=== PATIENT | male | born 1985 | race Two or more races ===

== ENCOUNTER 2017-03-12 07:15 | Emergency (ER) | payer MEDICAID ==
[~2017-03-12] VITALS: Ht 182.9 cm; Wt 88.5 kg
[~2017-03-12 07:15] MED LIST: BENTYL10 MG ORAL; KEFLEX500 MG ORAL; NKM; NORCO 5-325 TA1 EACH ORAL; OMEPRAZOLE40 M1 ORAL; PROTONIX40 M2 GT; RANITIDINE HCL150 MG ORAL; TYLENOL WITH C1 EACH ORAL; VICODIN 5-5001 EACH ORAL; ZANTAC150 MG ORAL; ZOFRAN ODT4 MG ORAL; ZOFRAN4 MG ORAL
[2017-03-12 07:27] VITALS: BP 149/92
[2017-03-12] MEDS ORDERED: Dicyclomine HCl 10mg/5ml oral soln ORAL ONE (07:45)
[2017-03-12] MEDS ORDERED: Mylanta II UD 30ml ORAL ONE (07:45)
[2017-03-12] MEDS ORDERED: Ketorolac 30mg Inj IV ONE (07:45)
[2017-03-12] MEDS ORDERED: Lidocaine 2% Visc 15ml soln ORAL ONE (07:45)
[2017-03-12] MEDS ORDERED: Morphine Sulfate 4mg/ml Inj IVP ONE (07:45)
[2017-03-12 07:55] LABS: BASOPHILS % (AUTO) 0.3 % (0.0-2.0); EOSINOPHILS % (AUTO) 0.2 % (0.0-3.0); LYMPHOCYTES % (AUTO) 11.1 % (20.0-45.0); MEAN CORPUSCULAR HEMOGLOBIN 27.4 PG (27.0-31.0); MEAN CORPUSCULAR HGB CONC 31.7 G/DL (32.0-36.0); MEAN CORPUSCULAR VOLUME 86 FL (80-99); NEUTROPHILS % (AUTO) 84.5 % (45.0-75.0); PLATELET COUNT 343 K/UL (150-450); RED BLOOD COUNT 5.24 M/UL (4.70-6.10); RED CELL DISTRIBUTION WIDTH 12.4 % (11.6-14.8); WHITE BLOOD COUNT 15.3 K/UL (4.8-10.8)
[2017-03-12 07:56] LABS: ANION GAP 13 mmol/L (5-15); CALCIUM 8.7 MG/DL (8.5-10.1); CARBON DIOXIDE 25 MMOL/L (21-32); CHLORIDE 102 MMOL/L (98-107); CREATININE 1.1 MG/DL (0.55-1.30); GLOMERULAR FILTRATION RATE > 60 mL/min (>60); POTASSIUM 3.3 MMOL/L (3.5-5.1); SODIUM 140 MMOL/L (136-145)
[2017-03-12 08:00] LABS: ALANINE AMINOTRANSFERASE 28 U/L (12-78); ASPARTATE AMINO TRANSFERASE 20 U/L (15-37); LIPASE 88 U/L (73-393); TOTAL PROTEIN 8.6 G/DL (6.4-8.2)
[2017-03-12] MEDS ORDERED: Hydromorphone 0.5mg/0.5ml inj ONE (08:12)
[2017-03-12] MEDS ORDERED: HYDROmorphone 1mg/ml Carpuject IVP ONE (08:15)
[2017-03-12 09:00] VITALS: BP 132/75
[2017-03-12] MEDS ORDERED: ZOFRAN ODT4 MG ORAL (09:00)
[2017-03-12] MEDS ORDERED: NORCO 5-325 TA1 EACH ORAL (09:00)
[2017-03-12] MEDS ORDERED: RANITIDINE HCL150 MG ORAL (09:00)
[2017-03-12 09:32] VITALS: BP 132/75
--- NOTE | 2017-03-12 10:11 | Emergency Room Report ---
History of Present Illness General Chief Complaint: Abdominal Pain Source: Patient Present Illness HPI 31-year-old male presents ED complaining of abdominal pain with nausea and vomiting. Started this morning. Pain is epigastric, 10 out of 10, throbbing, nonradiating. Denies chest pain shortness of breath. Notes nausea and vomiting. Denies fevers or chills. Notes history of gastritis. States he is not had a problem in some time now. Denies alcohol or drug use. No other aggravating relieving factors. Denies any other associated symptoms Allergies: Coded Allergies: No Known Allergies (Unverified , 10/01/12) Patient History Past Medical History: GERD Past Surgical History: none Pertinent Family History: none Social History: Denies: smoking, alcohol use, drug use Immunizations: UTD Reviewed Nursing Documentation: PMH: Agreed, PSxH: Agreed Nursing Documentation-PMH Past Medical History: No Stated History Hx Gastrointestinal Problems: Yes Review of Systems All Other Systems: negative except mentioned in HPI Physical Exam Vital Signs Date Time Temp Pulse Resp B/P (MAP) Pulse Ox O2 Delivery O2 Flow Rate FiO2 03/12/17 07:27 97.5 69 21 149/92 100 Room Air Sp02 EP Interpretation: reviewed, normal General Appearance: alert, GCS 15, non-toxic, moderate distress Head: normocephalic, atraumatic Eyes: bilateral eye normal inspection, bilateral eye PERRL ENT: hearing grossly normal, normal pharynx, no angioedema, normal voice Neck: full range of motion, supple/symm/no masses Respiratory: chest non-tender, lungs clear, normal breath sounds, speaking full sentences Cardiovascular #1: regular rate, rhythm, no edema Cardiovascular #2: 2+ carotid (R), 2+ carotid (L), 2+ radial (R), 2+ radial (L) , 2+ dorsalis pedis (R), 2+ dorsalis pedis (L) Gastrointestinal: normal bowel sounds, soft, non-distended, no guarding, no rebound, tenderness Rectal: deferred Genitourinary: normal inspection, no CVA tenderness Musculoskeletal: back normal, gait/station normal, normal range of motion, non- tender Neurologic: alert, oriented x3, responsive, motor strength/tone normal, sensory intact, speech normal Psychiatric: judgement/insight normal, memory normal, mood/affect normal, no suicidal/homicidal ideation Reflexes: 3+ bicep (R), 3+ bicep (L), 3+ tricep (R), 3+ tricep (L), 3+ knee (R) , 3+ knee (L) Skin: normal color, no rash, warm/dry, well hydrated Lymphatic: no adenopathy Medical Decision Making Diagnostic Impression: Primary Impression: Gastritis Qualified Codes: K29.00 - Acute gastritis without bleeding Additional Impression: Chronic pain Qualified Codes: G89.29 - Other chronic pain ER Course Hospital Course 31-year-old M presents to ED with epigastric pain with N/V. differential diagnosis: gastritis, SBO, cholecystits Clinical course Patient placed on stretcher. On pvc monitor. After initial history and physical I ordered labs, IV fluids, zofran, gi cocktail, pepcid and pain meds Labs - noted leukocytosis, no electrolyte abnormalities, LFTs normal On reassessment patient continues to have pain. Reviewed EMR and patient has been here in the past for similar presentation. Patient continued to require high doses of pain medication Agreed to provide him with 1 mg of Dilaudid Upon reassessment, patient states pain has improved. Tolerating by mouth intake I feel this is a highly complex case requiring extensive working including EKG/ Rhythm strip, Xray/CT/US, Blood/urine lab work, repeat exams while in ED, and administration of strong opiates/narcotics for pain control, admission to hospital or close patient follow up. Diagnosis - gastritis, chronic pain Stable and discharged to home with prescriptions for Zantac, zofran, norco. Followup with PMD. Return to ED if symptoms recur or worsen Labs Test 03/12/17 07:30 White Blood Count 15.3 K/UL (4.8-10.8) Red Blood Count 5.24 M/UL (4.70-6.10) Hemoglobin 14.3 G/DL (14.2-18.0) Hematocrit 45.2 % (42.0-52.0) Mean Corpuscular Volume 86 FL (80-99) Mean Corpuscular Hemoglobin 27.4 PG (27.0-31.0) Mean Corpuscular Hemoglobin Concent 31.7 G/DL (32.0-36.0) Red Cell Distribution Width 12.4 % (11.6-14.8) Platelet Count 343 K/UL (150-450) Mean Platelet Volume 6.0 FL (6.5-10.1) Neutrophils (%) (Auto) 84.5 % (45.0-75.0) Lymphocytes (%) (Auto) 11.1 % (20.0-45.0) Monocytes (%) (Auto) 4.0 % (1.0-10.0) Eosinophils (%) (Auto) 0.2 % (0.0-3.0) Basophils (%) (Auto) 0.3 % (0.0-2.0) Sodium Level 140 MMOL/L (136-145) Potassium Level 3.3 MMOL/L (3.5-5.1) Chloride Level 102 MMOL/L (98-107) Carbon Dioxide Level 25 MMOL/L (21-32) Anion Gap 13 mmol/L (5-15) Blood Urea Nitrogen 14 mg/dL (7-18) Creatinine 1.1 MG/DL (0.55-1.30) Estimat Glomerular Filtration Rate > 60 mL/min (>60) Glucose Level 134 MG/DL (74-106) Calcium Level 8.7 MG/DL (8.5-10.1) Total Bilirubin 0.8 MG/DL (0.2-1.0) Aspartate Amino Transf (AST/SGOT) 20 U/L (15-37) Alanine Aminotransferase (ALT/SGPT) 28 U/L (12-78) Alkaline Phosphatase 144 U/L (46-116) Total Protein 8.6 G/DL (6.4-8.2) Albumin 4.4 G/DL (3.4-5.0) Globulin 4.2 g/dL Albumin/Globulin Ratio 1.0 (1.0-2.7) Lipase 88 U/L (73-393) Last Vital Signs Date Time Temp Pulse Resp B/P (MAP) Pulse Ox O2 Delivery O2 Flow Rate FiO2 03/12/17 09:32 97.5 67 17 132/75 100 Room Air Status: improved Disposition: HOME, SELF-CARE Condition: Stable Scripts Ranitidine Hcl* (ZANTAC*) 150 Mg Tablet 150 MG ORAL TWICE A DAY, #30 TAB Prov: EDWINA CAMPUZANO M.D. 03/12/17 Ondansetron Odt* (ZOFRAN ODT*) 4 Mg Tab.rapdis 4 MG ORAL Q6H Y for Nausea & Vomiting, #30 TAB 0 Refills Prov: EDWINA CAMPUZANO M.D. 03/12/17 Hydrocodone Bit/Acetaminophen 5-325* (NORCO 5-325*) 1 Each Tablet 1 TAB ORAL Q6H Y for For Pain, #10 TAB 0 Refills Prov: EDWINA CAMPUZANO M.D. 03/12/17 Referrals: [facility]ERR[facility] (PCP) Patient Instructions: Gastritis, Adult EDWINA CAMPUZANO M.D. Mar 12, 2017 10:11
== END 2017-03-12 09:32 | disposition home or self-care (01) ==
LOC: EMR 08:15
DX: K29.70 Gastritis, unspecified, without bleeding (principal); G89.29 Other chronic pain; K21.9 Gastro-esophageal reflux disease without esophagitis
CPT/HCPCS: 36415; 80053; 83690; 85025; 96361; 96374; 96375; 99284; J1170; J1885; J2270; J2405; S0028

== ENCOUNTER 2017-06-29 12:47 | Inpatient (IN) | payer MEDICAID ==
[~2017-06-29] VITALS: Ht 185.4 cm; Wt 77.6 kg
--- NOTE | 2017-06-29 12:55 | Emergency Room Report ---
History of Present Illness General Source: Patient, Significant Other Present Illness HPI The patient was discharged from [facility] this morning. He was seen for epigastric pain. He has a history of having gastritis and ulcers. He had endoscopy done 1 year ago at [facility]. [place] treated him with omeprazole and discharged him. The pain is 10/10 any Lisa vomiting at this time. He denies vomiting coffee grounds or having melena. He states his stools have been dark brown. There's been no blood. He denies any fevers, productive cough. He does not believe he had a biopsy done at [place]. He states he was never treated with antibiotics. He denies alcohol, smoking, NSAIDs. No chest pain, cough, sore throat, headache, rashes. Anxious with pain out of control. Had been seen in past for same problem here. Last was February 2017. Prior to that 2015. In past, dx here of gastritis. Also felt to have drug seeking behavior. Allergies: Coded Allergies: No Known Allergies (Unverified , 10/01/12) Patient History Past Medical History: see triage record Social History: Reports: drug use - THC; Denies: smoking, alcohol use Social History Narrative with significant other Reviewed Nursing Documentation: PMH: Agreed; PSxH: Agreed Nursing Documentation-PMH Hx Gastrointestinal Problems: Yes Review of Systems All Other Systems: negative except mentioned in HPI Physical Exam Vital Signs Date Time Temp Pulse Resp B/P (MAP) Pulse Ox O2 Delivery O2 Flow Rate FiO2 06/29/17 12:48 98.1 63 17 165/91 100 Room Air 98.1 Sp02 EP Interpretation: reviewed, normal General Appearance: GCS 15, non-toxic, severe distress, other - diaphoretic Head: normocephalic Eyes: bilateral eye normal inspection, bilateral eye PERRL ENT: moist mucus membranes Neck: supple Respiratory: lungs clear, normal breath sounds Cardiovascular #1: regular rate, rhythm Cardiovascular #2: 2+ radial (R) Gastrointestinal: no mass, non-distended, no rebound, guarding, tenderness, decreased bowel sounds, scaphoid Genitourinary: no CVA tenderness Musculoskeletal: back normal, gait/station normal, normal range of motion Neurologic: alert, oriented x3, grossly normal Psychiatric: anxious - and in pain Skin: normal inspection, warm/dry Medical Decision Making Diagnostic Impression: Primary Impression: Acute abdominal pain Additional Impression: Gastritis Qualified Codes: K29.00 - Acute gastritis without bleeding ER Course The patient presents with severe epigastric pain. He has a history of gastritis and ulcer. We need to be concerned about this and the possibility of pancreatitis. Also his heart needs to be checked out. The patient will be evaluated with EKG and labs. He'll be treated with IV hydration, Protonix, Reglan, Benadryl and Dilaudid. Labs with normal WBC, CMP (slight elevation glucose), normal lipase. Xrays unremarkable. Patient pain is returning. Dilaudid repeated. No more vomiting but still with gagging. Patient needs hospitalization for pain control and consideration for repeat endoscopy. Admit med Dr. Castle. Laboratory Tests Test 06/29/17 12:50 06/29/17 14:00 White Blood Count 9.8 K/UL (4.8-10.8) Red Blood Count 5.39 M/UL (4.70-6.10) Hemoglobin 15.7 G/DL (14.2-18.0) Hematocrit 45.6 % (42.0-52.0) Mean Corpuscular Volume 85 FL (80-99) Mean Corpuscular Hemoglobin 29.2 PG (27.0-31.0) Mean Corpuscular Hemoglobin Concent 34.5 G/DL (32.0-36.0) Red Cell Distribution Width 11.4 % (11.6-14.8) L Platelet Count 243 K/UL (150-450) Mean Platelet Volume 7.0 FL (6.5-10.1) Neutrophils (%) (Auto) 80.7 % (45.0-75.0) H Lymphocytes (%) (Auto) 13.5 % (20.0-45.0) L Monocytes (%) (Auto) 5.2 % (1.0-10.0) Eosinophils (%) (Auto) 0.2 % (0.0-3.0) Basophils (%) (Auto) 0.4 % (0.0-2.0) Prothrombin Time 10.7 SEC (9.30-11.50) Prothrombin Time INR 1.0 (0.9-1.1) PTT 26 SEC (23-33) Sodium Level 142 MMOL/L (136-145) Potassium Level 3.2 MMOL/L (3.5-5.1) L Chloride Level 101 MMOL/L (98-107) Carbon Dioxide Level 26 MMOL/L (21-32) Anion Gap 15 mmol/L (5-15) Blood Urea Nitrogen 18 mg/dL (7-18) Creatinine 0.9 MG/DL (0.55-1.30) Estimate Glomerular Filtration Rate > 60 mL/min (>60) Glucose Level 132 MG/DL (74-106) H Calcium Level 9.9 MG/DL (8.5-10.1) Total Bilirubin 1.4 MG/DL (0.2-1.0) H Direct Bilirubin 0.3 MG/DL (0.0-0.3) Aspartate Amino Transferase (AST) 19 U/L (15-37) Alanine Aminotransferase (ALT) 31 U/L (12-78) Alkaline Phosphatase 120 U/L (46-116) H Total Creatine Kinase 88 U/L (26-308) Troponin I 0.000 ng/mL (0.000-0.056) Total Protein 8.3 G/DL (6.4-8.2) H Albumin 4.7 G/DL (3.4-5.0) Globulin 3.6 g/dL Albumin/Globulin Ratio 1.3 (1.0-2.7) Lipase 97 U/L (73-393) Serum Alcohol < 3 mg/dL Urine Color Pale yellow Urine Appearance Clear Urine pH 8 (4.5-8.0) Urine Specific [place] 1.015 (1.005-1.035) Urine Protein Negative (NEGATIVE) Urine Glucose (UA) Negative (NEGATIVE) Urine Ketones 4+ (NEGATIVE) H Urine Occult Blood 1+ (NEGATIVE) H Urine Nitrite Negative (NEGATIVE) Urine Bilirubin Negative (NEGATIVE) Urine Urobilinogen Normal MG/DL (0.0-1.0) Urine Leukocyte Esterase Negative (NEGATIVE) Urine RBC 2-4 /HPF (0 - 0) H Urine WBC 0-2 /HPF (0 - 0) Urine Squamous Epithelial Cells Occasional /LPF Urine Bacteria Occasional /HPF (NONE) Urine Opiates Screen Negative (NEGATIVE) Urine Barbiturates Screen Negative (NEGATIVE) Phencyclidine (PCP) Screen Negative (NEGATIVE) Urine Amphetamines Screen Negative (NEGATIVE) Urine Benzodiazepines Screen Negative (NEGATIVE) Urine Cocaine Screen Negative (NEGATIVE) Urine Marijuana (THC) Screen Positive (NEGATIVE) H EKG Diagnostic Results Rate: normal Rhythm: NSR ST Segments: no acute changes Rhythm Strip Diag. Results Rhythm: NSR, no PVC's, no ectopy Chest X-Ray Diagnostic Results Chest X-Ray Diagnostic Results : Chest X-Ray Ordered: Yes # of Views/Limited/Complete: 1 View Indication: Other EP Interpretation: Yes Interpretation: no consolidation, no effusion, no pneumothorax, no acute cardiopulmonary disease Impression: No acute disease Electronically Signed by: Electronically signed by Oumar Dickson MD Other X-Ray Diagnostic Results Other X-Ray Diagnostic Results : # of Views/Limited Vs Complete: 2 View Indication: Pain EP Interpretation: Yes Interpretation: nonspecific bowel gas, no sbo, other - No masses Impression: Other Electronically Signed by: Electronically signed by Oumar Dickson MD Last Vital Signs Date Time Temp Pulse Resp B/P (MAP) Pulse Ox O2 Delivery O2 Flow Rate FiO2 06/29/17 20:00 99.4 73 19 153/89 100 Room Air 99.4 Status: improved Disposition: ADMITTED INPATIENT Condition: Serious Oumar Dickson M.D. Jun 29, 2017 12:55
[2017-06-29 12:57] VITALS: BP 146/81
[2017-06-29] MEDS ORDERED: Metoclopramide 10mg/2ml Inj IVP ONE (13:00)
[2017-06-29] MEDS ORDERED: Pantoprazole Inj IV ONE (13:00)
[2017-06-29] MEDS ORDERED: HYDROmorphone 1mg/ml Carpuject IVP ONE ×2 (13:00→15:00)
[2017-06-29] MEDS ORDERED: DiphenhydrAMINE 50mg/ml Inj IVP ONE (13:00)
[2017-06-29 13:39] LABS: ANION GAP 15 mmol/L (5-15); BLOOD UREA NITROGEN 18 mg/dL (7-18); CALCIUM 9.9 MG/DL (8.5-10.1); CARBON DIOXIDE 26 MMOL/L (21-32); CHLORIDE 101 MMOL/L (98-107); CREATININE 0.9 MG/DL (0.55-1.30); POTASSIUM 3.2 MMOL/L (3.5-5.1); SODIUM 142 MMOL/L (136-145)
[2017-06-29 13:49] LABS: ALANINE AMINOTRANSFERASE 31 U/L (12-78); ALBUMIN 4.7 G/DL (3.4-5.0); ALBUMIN/GLOBULIN RATIO 1.3 (1.0-2.7); ALKALINE PHOSPHATASE 120 U/L (46-116); ASPARTATE AMINO TRANSFERASE 19 U/L (15-37); BILIRUBIN,TOTAL 1.4 MG/DL (0.2-1.0); CREATINE KINASE 88 U/L (26-308)
[2017-06-29 13:51] LABS: BASOPHILS % (AUTO) 0.4 % (0.0-2.0); EOSINOPHILS % (AUTO) 0.2 % (0.0-3.0); HEMATOCRIT 45.6 % (42.0-52.0); HEMOGLOBIN 15.7 G/DL (14.2-18.0); LYMPHOCYTES % (AUTO) 13.5 % (20.0-45.0); MEAN CORPUSCULAR VOLUME 85 FL (80-99); MONOCYTES % (AUTO) 5.2 % (1.0-10.0); NEUTROPHILS % (AUTO) 80.7 % (45.0-75.0); PLATELET COUNT 243 K/UL (150-450); RED BLOOD COUNT 5.39 M/UL (4.70-6.10); RED CELL DISTRIBUTION WIDTH 11.4 % (11.6-14.8); WHITE BLOOD COUNT 9.8 K/UL (4.8-10.8)
[2017-06-29 13:52] LABS: BILIRUBIN,DIRECT 0.3 MG/DL (0.0-0.3)
[2017-06-29 14:16] LABS: APPEARANCE,URINE CLEAR; BILIRUBIN, URINE NEGATIVE (NEGATIVE); COLOR,URINE PALE YELLOW; GLUCOSE, URINE (UA) NEGATIVE (NEGATIVE); KETONES,URINE 4+ (NEGATIVE); LEUKOCYTE ESTERASE ,URINE NEGATIVE (NEGATIVE); NITRITE,URINE NEGATIVE (NEGATIVE); PH,URINE 8 (4.5-8.0); PROTEIN,URINE NEGATIVE (NEGATIVE); UROBILINOGEN,URINE NORMAL MG/DL (0.0-1.0)
[2017-06-29] MEDS ORDERED: PANTOPRAZOLE SO40 MG ORAL (14:19)
[2017-06-29 14:33] VITALS: BP 146/92
[2017-06-29] MEDS ORDERED: Mylanta II UD 30ml ORAL ONE (15:15)
[2017-06-29] MEDS ORDERED: Lidocaine 2% Visc 15ml soln ORAL ONE (15:15)
[2017-06-29] MEDS ORDERED: LORazepam Inj 2mg/ml 1ml IV PRN (15:45)
[2017-06-29] MEDS ORDERED: Miralax 17gm pkt ORAL PRN (15:45)
[2017-06-29] MEDS ORDERED: Mylanta II UD 30ml ORAL PRN (15:45)
[2017-06-29] MEDS ORDERED: Metoclopramide 10mg/2ml Inj IVP PRN (15:45)
[2017-06-29] MEDS ORDERED: Nitroglycerin Subl 0.4mg tab SL PRN (16:00)
[2017-06-29 16:21] VITALS: BP 106/67
[2017-06-29] MEDS: D5 1/2NS 1,000 ML IV SCH (17:50)
[2017-06-29] MEDS: Morphine Sulfate 4mg/ml Inj IVP PRN (19:49)
[2017-06-29 20:00] VITALS: BP 153/89
[2017-06-29] MEDS: Heparin 5000 units/ml inj SUBQ SCH (21:25)
[2017-06-30] VITALS: BP 121/66
[2017-06-30 04:00] VITALS: BP 112/74
[2017-06-30] MEDS: D5 1/2NS 1,000 ML IV SCH (05:13)
[2017-06-30 06:35] LABS: BASOPHILS % (AUTO) 0.5 % (0.0-2.0); EOSINOPHILS % (AUTO) 1.3 % (0.0-3.0); HEMATOCRIT 39.4 % (42.0-52.0); HEMOGLOBIN 13.8 G/DL (14.2-18.0); MEAN CORPUSCULAR VOLUME 85 FL (80-99); MONOCYTES % (AUTO) 7.6 % (1.0-10.0); NEUTROPHILS % (AUTO) 57.7 % (45.0-75.0); PLATELET COUNT 202 K/UL (150-450); RED BLOOD COUNT 4.65 M/UL (4.70-6.10); RED CELL DISTRIBUTION WIDTH 11.4 % (11.6-14.8); WHITE BLOOD COUNT 5.4 K/UL (4.8-10.8)
[2017-06-30 07:00] LABS: ALANINE AMINOTRANSFERASE 25 U/L (12-78); ALBUMIN 3.6 G/DL (3.4-5.0); ALBUMIN/GLOBULIN RATIO 1.1 (1.0-2.7); ALKALINE PHOSPHATASE 99 U/L (46-116); AMYLASE 58 U/L (25-115); ANION GAP 4 mmol/L (5-15); ASPARTATE AMINO TRANSFERASE 15 U/L (15-37); BILIRUBIN,TOTAL 1.1 MG/DL (0.2-1.0); BLOOD UREA NITROGEN 9 mg/dL (7-18); CALCIUM 8.9 MG/DL (8.5-10.1); CARBON DIOXIDE 30 MMOL/L (21-32); CHLORIDE 103 MMOL/L (98-107); CREATININE 0.8 MG/DL (0.55-1.30); POTASSIUM 3.4 MMOL/L (3.5-5.1); SODIUM 137 MMOL/L (136-145)
[2017-06-30 07:03] LABS: BILIRUBIN,DIRECT 0.1 MG/DL (0.0-0.3)
[2017-06-30 08:00] VITALS: BP 146/57
--- NOTE | 2017-06-30 08:32 | Diagnostic Imaging Report ---
Indication: Cough Technique: One view of the chest Comparison: none Findings: No acute infiltrates, effusions, or congestion. Tortuous calcified aorta. Normal heart size. Upper mediastinum unremarkable. No significant interim change Impression: No acute process. This agrees with the preliminary interpretation provided by the emergency room physician
--- NOTE | 2017-06-30 08:32 | Diagnostic Imaging Report ---
Indication: Abdominal pain Technique: Supine view of the abdomen Comparison: none Findings: Bowel gas pattern is unremarkable. No unusual masses or calcifications. Impression: No acute process This agrees with the preliminary interpretation provided by the emergency room physician
[2017-06-30] MEDS ORDERED: Pantoprazole Inj IV SCH (09:00)
[2017-06-30] MEDS: Heparin 5000 units/ml inj SUBQ SCH (09:00)
[2017-06-30] MEDS ORDERED: D5 1/2NS 1000ml IV ONE (10:31)
--- NOTE | 2017-06-30 10:38 | GI Initial Consult Note ---
History of Present Illness General Date patient seen: Jun 30, 2017 Time patient seen: 10:30 Reason for Hospitalization: Abdominal Pain Referring physician: LAURIE WEBBER Reason for Consultation: ABDOMINAL PAIN Present Illness HPI The patient was discharged from [facility] this morning. He was seen for epigastric pain. He has a history of having gastritis and ulcers. He had endoscopy done 1 year ago at [facility]. [place] treated him with omeprazole and discharged him. The pain is 10/10 any Lisa vomiting at this time. He denies vomiting coffee grounds or having melena. He states his stools have been dark brown. There's been no blood. He denies any fevers, productive cough. He does not believe he had a biopsy done at [place]. He states he was never treated with antibiotics. He denies alcohol, smoking, NSAIDs. No chest pain, cough, sore throat, headache, rashes. Anxious with pain out of control. Had been seen in past for same problem here. Last was February 2017. Prior to that 2015. In past, dx here of gastritis. Also felt to have drug seeking behavior. GI consulted for epigastric pain. Pt seen, awake A&Ox4 NAD with no active s/sx of N/V/D. States his abdominal pain has greatly improved. Has history of endoscopy x 1 year ago, dx with gastritis and ulcers. Unknown biopsy report. Denies any medical history. 3 year tobacco user, 7 year marijuana user. Addition HPI as noted above. Home Meds Active Scripts Ranitidine Hcl* (ZANTAC*) 150 Mg Tablet, 150 MG ORAL TWICE A DAY, #30 TAB Prov:Isrrael Steel MD 03/12/17 Ondansetron Odt* (ZOFRAN ODT*) 4 Mg Tab.rapdis, 4 MG ORAL Q6H PRN for Nausea & Vomiting, #30 TAB 0 Refills Prov:Isrrael Steel MD 03/12/17 Hydrocodone Bit/Acetaminophen 5-325* (NORCO 5-325*) 1 Each Tablet, 1 TAB ORAL Q6H PRN for For Pain, #10 TAB 0 Refills Prov:Isrrael Steel MD 03/12/17 Cephalexin* (KEFLEX*) 500 Mg Capsule, 500 MG ORAL Q6H, #28 CAP Prov:Isrrael Steel MD 04/28/15 Ranitidine Hcl* (ZANTAC*) 150 Mg Tablet, 150 MG ORAL TWICE A DAY, #30 TAB Prov:Isrrael Steel MD 04/28/15 Ondansetron Odt* (ZOFRAN ODT*) 4 Mg Tab.rapdis, 4 MG ORAL Q6H PRN for Nausea & Vomiting, #30 TAB Prov:Isrrael Steel MD 04/28/15 Ondansetron Odt* (ZOFRAN ODT*) 4 Mg Tab.rapdis, 4 MG ORAL Q6H PRN for Nausea & Vomiting, #30 TAB Prov:CHAROEMINERVA MoonINDA P.A. 03/31/14 Acetaminophen With Codeine 300MG/30MG (T#3)* (TYLENOL WITH CODEINE #3 TABLET*) 1 Each Tablet, 1 TAB ORAL Q4H PRN for For Pain, #15 TAB 0 Refills Prov:KURT MONTESA P.A. 03/31/14 Ranitidine Hcl* (ZANTAC*) 150 Mg Tablet, 150 MG ORAL TWICE A DAY, #60 TAB Prov:MINERVAOEMINERVA MoonINDA P.A. 03/31/14 Reported Medications Pantoprazole* (PANTOPRAZOLE*) 40 Mg Tablet.dr, 40 MG ORAL BEFORE BREAKFAST, TAB 06/29/17 No Known Medications* (NKM - No Known Medications*) ., 0 ., 0 Refills 03/15/13 Med list reviewed/reconciled: Yes Allergies: Coded Allergies: No Known Allergies (Unverified , 10/01/12) Patient History History Provided By: Patient, Medical Record PMH Narrative Past Medical History: see triage record Social History: Reports: drug use - THC; Denies: smoking, alcohol use Social History Narrative with significant other Reviewed Nursing Documentation: PMH: Agreed; PSxH: Agreed Nursing Documentation-PMH Hx Gastrointestinal Problems: Yes Pertinent Family History: none Social History: Reports: smoking, drug use Review of Systems All Other Systems: negative except mentioned in HPI Physical Exam Vital Signs Date Time Temp Pulse Resp B/P (MAP) Pulse Ox O2 Delivery O2 Flow Rate FiO2 06/29/17 12:48 98.1 63 17 165/91 100 Room Air 98.1 Sp02 EP Interpretation: reviewed, normal Labs Laboratory Tests Test 06/29/17 12:50 06/29/17 14:00 06/30/17 05:30 White Blood Count 9.8 K/UL (4.8-10.8) 5.4 K/UL (4.8-10.8) Red Blood Count 5.39 M/UL (4.70-6.10) 4.65 M/UL (4.70-6.10) L Hemoglobin 15.7 G/DL (14.2-18.0) 13.8 G/DL (14.2-18.0) L Hematocrit 45.6 % (42.0-52.0) 39.4 % (42.0-52.0) L Mean Corpuscular Volume 85 FL (80-99) 85 FL (80-99) Mean Corpuscular Hemoglobin 29.2 PG (27.0-31.0) 29.6 PG (27.0-31.0) Mean Corpuscular Hemoglobin Concent 34.5 G/DL (32.0-36.0) 34.9 G/DL (32.0-36.0) Red Cell Distribution Width 11.4 % (11.6-14.8) L 11.4 % (11.6-14.8) L Platelet Count 243 K/UL (150-450) 202 K/UL (150-450) Mean Platelet Volume 7.0 FL (6.5-10.1) 6.6 FL (6.5-10.1) Neutrophils (%) (Auto) 80.7 % (45.0-75.0) H 57.7 % (45.0-75.0) Lymphocytes (%) (Auto) 13.5 % (20.0-45.0) L 33.0 % (20.0-45.0) Monocytes (%) (Auto) 5.2 % (1.0-10.0) 7.6 % (1.0-10.0) Eosinophils (%) (Auto) 0.2 % (0.0-3.0) 1.3 % (0.0-3.0) Basophils (%) (Auto) 0.4 % (0.0-2.0) 0.5 % (0.0-2.0) Prothrombin Time 10.7 SEC (9.30-11.50) Prothromb Time International Ratio 1.0 (0.9-1.1) Activated Partial Thromboplast Time 26 SEC (23-33) 30 SEC (23-33) Sodium Level 142 MMOL/L (136-145) 137 MMOL/L (136-145) Potassium Level 3.2 MMOL/L (3.5-5.1) L 3.4 MMOL/L (3.5-5.1) L Chloride Level 101 MMOL/L (98-107) 103 MMOL/L (98-107) Carbon Dioxide Level 26 MMOL/L (21-32) 30 MMOL/L (21-32) Anion Gap 15 mmol/L (5-15) 4 mmol/L (5-15) L Blood Urea Nitrogen 18 mg/dL (7-18) 9 mg/dL (7-18) Creatinine 0.9 MG/DL (0.55-1.30) 0.8 MG/DL (0.55-1.30) Estimat Glomerular Filtration Rate > 60 mL/min (>60) > 60 mL/min (>60) Glucose Level 132 MG/DL (74-106) H 100 MG/DL (74-106) Calcium Level 9.9 MG/DL (8.5-10.1) 8.9 MG/DL (8.5-10.1) Total Bilirubin 1.4 MG/DL (0.2-1.0) H 1.1 MG/DL (0.2-1.0) H Direct Bilirubin 0.3 MG/DL (0.0-0.3) 0.1 MG/DL (0.0-0.3) Aspartate Amino Transf (AST/SGOT) 19 U/L (15-37) 15 U/L (15-37) Alanine Aminotransferase (ALT/SGPT) 31 U/L (12-78) 25 U/L (12-78) Alkaline Phosphatase 120 U/L (46-116) H 99 U/L (46-116) Total Creatine Kinase 88 U/L (26-308) Troponin I 0.000 ng/mL (0.000-0.056) Total Protein 8.3 G/DL (6.4-8.2) H 6.8 G/DL (6.4-8.2) Albumin 4.7 G/DL (3.4-5.0) 3.6 G/DL (3.4-5.0) Globulin 3.6 g/dL 3.2 g/dL Albumin/Globulin Ratio 1.3 (1.0-2.7) 1.1 (1.0-2.7) Lipase 97 U/L (73-393) 95 U/L (73-393) Serum Alcohol < 3 mg/dL Urine Color Pale yellow Urine Appearance Clear Urine pH 8 (4.5-8.0) Urine Specific [place] 1.015 (1.005-1.035) Urine Protein Negative (NEGATIVE) Urine Glucose (UA) Negative (NEGATIVE) Urine Ketones 4+ (NEGATIVE) H Urine Occult Blood 1+ (NEGATIVE) H Urine Nitrite Negative (NEGATIVE) Urine Bilirubin Negative (NEGATIVE) Urine Urobilinogen Normal MG/DL (0.0-1.0) Urine Leukocyte Esterase Negative (NEGATIVE) Urine RBC 2-4 /HPF (0 - 0) H Urine WBC 0-2 /HPF (0 - 0) Urine Squamous Epithelial Cells Occasional /LPF Urine Bacteria Occasional /HPF (NONE) Urine Opiates Screen Negative (NEGATIVE) Urine Barbiturates Screen Negative (NEGATIVE) Phencyclidine (PCP) Screen Negative (NEGATIVE) Urine Amphetamines Screen Negative (NEGATIVE) Urine Benzodiazepines Screen Negative (NEGATIVE) Urine Cocaine Screen Negative (NEGATIVE) Urine Marijuana (THC) Screen Positive (NEGATIVE) H Amylase Level 58 U/L (25-115) General Appearance: well appearing, no apparent distress, alert Head: normocephalic EENT: PERRL/EOMI, normal ENT inspection Neck: supple Respiratory: normal breath sounds, no respiratory distress Cardiovascular: normal rate Gastrointestinal: normal inspection, non tender, soft, normal bowel sounds, non -distended Rectal: deferred Genitourinary: deferred Musculoskeletal: normal inspection, back normal Neurologic: normal inspection, alert, oriented x3, responsive Psychiatric: normal inspection, judgement/insight normal, memory normal Skin: normal inspection, normal color, no rash, warm/dry, palpation normal, well hydrated Lymphatic: normal inspection, no adenopathy Current Medications Current Medications Medications (Trade) Dose Ordered Sig/Humphrey Route PRN Reason Start Time Stop Time Status Last Admin Dose Admin Acetaminophen (Tylenol) 650 mg Q4H PRN ORAL T>100.5 06/29/17 15:45 07/29/17 15:44 Al Hydroxide/Mg Hydroxide (Mylanta II) 30 ml Q6H PRN ORAL dyspepsia 06/29/17 15:45 07/29/17 15:44 Dextrose (Dextrose 50%) 25 ml STAT PRN IV Hypoglycemia 06/29/17 15:45 07/29/17 15:44 Dextrose (Dextrose 50%) 50 ml STAT PRN IV Hypoglycemia 06/29/17 15:45 07/29/17 15:44 Dextrose/Sodium Chloride 1,000 ml @ 75 mls/hr [id number] IV 06/29/17 17:00 07/29/17 16:59 06/30/17 05:13 Diphenhydramine HCl (Benadryl) 25 mg Q6H PRN ORAL Itching/Pruritis 06/29/17 15:45 07/29/17 15:44 Heparin Sodium (Porcine) (Heparin 5000 units/ml) 5,000 units EVERY 12 HOURS SUBQ 06/29/17 21:00 07/29/17 20:59 06/29/17 21:25 Lorazepam (Ativan 2mg/ml 1ml) 1 mg Q4H PRN IV agitation 06/29/17 15:45 07/06/17 15:44 Morphine Sulfate (Morphine Sulfate) 2 mg Q4H PRN IVP Severe Pain (Pain Scale 7-10) 06/29/17 15:45 07/06/17 15:44 06/29/17 19:49 Nitroglycerin (Ntg) 0.4 mg Q5MIN X 3 DOSES PRN SL Prn Chest Pain 06/29/17 16:00 07/29/17 15:59 Ondansetron HCl (Zofran) 4 mg Q6H PRN IVP Nausea & Vomiting 06/29/17 15:45 07/29/17 15:44 06/29/17 19:48 Pantoprazole (Protonix) 40 mg DAILY IV 06/30/17 09:00 07/30/17 08:59 Polyethylene Glycol (Miralax) 17 gm HSPRN PRN ORAL Constipation 06/29/17 15:45 07/29/17 15:44 Promethazine HCl (Phenergan) 25 mg Q8H PRN IV refractory nausea 06/29/17 15:45 07/29/17 15:44 Temazepam (Restoril) 15 mg HSPRN PRN ORAL Insomnia 06/29/17 21:00 07/06/17 20:59 GI: Plan Problems: (1) Acute abdominal pain (2) Gastritis (3) Drug-seeking behavior (4) Gastritis Plan Hx of EGD x 1 year, dx with gastritis and ulcers abdominal U/S today >> ok to adv to regular diet after imaging study PPI daily, consider Carafate if epigastric pain not improved pain mgmt zofran prn endoscopy if needed fu labs Discussed with Dr. Aguilar. Thank you for this patient referral, we will follow. Joy Clark N.P. Jun 30, 2017 10:38
[2017-06-30] MEDS: Morphine Sulfate 4mg/ml Inj IVP PRN (11:30)
[2017-06-30 12:00] VITALS: BP 127/77
--- NOTE | 2017-06-30 12:05 | Diagnostic Imaging Report ---
Indication: Abdominal pain Technique: George-scale and duplex images of the upper abdomen were obtained Comparison: none Findings: Gallbladder is unremarkable, without stones, wall thickening, nor pericholecystic fluid. Sonographic Chandler's sign is negative. Common bile duct measures 3 mm in diameter. No intrahepatic biliary ductal dilatation. Liver demonstrates slightly coarsened echogenicity, no focal abnormality. Portal vein and hepatic veins are patent. Pancreas is unremarkable. Spleen is unremarkable. Left kidney measures 11.6 cm in length. Right kidney measures 11.6 cm length. Both kidneys demonstrate normal echogenicity. There is no hydronephrosis. No focal abnormality . Non-aneurysmal abdominal aorta . Impression: Suggestive slightly coarsened hepatic echogenicity Otherwise unremarkable exam. Negative for gallstones or dilated ducts
--- NOTE | 2017-06-30 13:48 | History and Physical ---
History of Present Illness General Date patient seen: Jun 30, 2017 Reason for Hospitalization: Abdominal Pain Present Illness HPI The patient was discharged from [facility] this morning. He was seen for epigastric pain. He has a history of having gastritis and ulcers. He had endoscopy done 1 year ago at [facility]. [facility] treated him with omeprazole and discharged him. The pain is 10/10 any Lisa vomiting at this time. He denies vomiting coffee grounds or having melena. He states his stools have been dark brown. There's been no blood. He denies any fevers, productive cough. Allergies: Coded Allergies: No Known Allergies (Unverified , 10/01/12) Medication History Scheduled Cephalexin* (Keflex*), 500 MG ORAL Q6H No Known Medications* (NKM - No Known Medications*), 0 ., (Reported) Pantoprazole* (Pantoprazole*), 40 MG ORAL BEFORE BREAKFAST, (Reported) Ranitidine Hcl* (Zantac*), 150 MG ORAL TWICE A DAY Ranitidine Hcl* (Zantac*), 150 MG ORAL TWICE A DAY Ranitidine Hcl* (Zantac*), 150 MG ORAL TWICE A DAY Scheduled PRN Acetaminophen With Codeine 300MG/30MG (T#3)* (Tylenol With Codeine #3 Tablet*), 1 TAB ORAL Q4H PRN for For Pain Hydrocodone Bit/Acetaminophen 5-325* (Accord 5-325*), 1 TAB ORAL Q6H PRN for For Pain Ondansetron Odt* (Zofran Odt*), 4 MG ORAL Q6H PRN for Nausea & Vomiting Ondansetron Odt* (Zofran Odt*), 4 MG ORAL Q6H PRN for Nausea & Vomiting Ondansetron Odt* (Zofran Odt*), 4 MG ORAL Q6H PRN for Nausea & Vomiting Patient History Healthcare decision maker Resuscitation status Full Code Advanced Directive on File Past Medical/Surgical History Past Medical/Surgical History: (1) Chronic pain Review of Systems All Other Systems: negative except mentioned in HPI Physical Exam General Appearance: WD/WN Lines, tubes and drains: central line HEENT: normocephalic Neck: non-tender Respiratory/Chest: chest wall non-tender, lungs clear Cardiovascular/Chest: normal peripheral pulses, normal rate Abdomen: normal bowel sounds, non tender Genitourinary/Rectal: normal rectal exam Extremities: normal range of motion Last 24 Hour Vital Signs Date Time Temp Pulse Resp B/P (MAP) Pulse Ox O2 Delivery O2 Flow Rate FiO2 06/30/17 12:00 99.0 60 18 127/77 98 Room Air 99.0 06/30/17 08:00 98.2 76 18 146/57 97 Room Air 98.2 06/30/17 04:00 97.8 61 18 112/74 99 Room Air 97.8 06/30/17 00:00 98.0 63 18 121/66 98 Room Air 98.0 06/29/17 20:00 99.4 73 19 153/89 100 Room Air 99.4 06/29/17 16:21 98.9 62 16 106/67 99 Room Air 98.9 06/29/17 16:15 208.6 75 14 148/84 99 Room Air 06/29/17 15:07 98.1 06/29/17 14:33 68 22 146/92 98 Room Air Intake and Output 06/29/17 06/30/17 19:00 07:00 Intake Total 75 ml 825 ml Output Total 850 ml Balance 75 ml -25 ml Intake Oral 0 ml IV Total 75 ml 825 ml Output Urine Total 600 ml Emesis 250 ml Laboratory Tests Test 06/29/17 14:00 06/30/17 05:30 Urine Color Pale yellow Urine Appearance Clear Urine pH 8 (4.5-8.0) Urine Specific [place] 1.015 (1.005-1.035) Urine Protein Negative (NEGATIVE) Urine Glucose (UA) Negative (NEGATIVE) Urine Ketones 4+ (NEGATIVE) H Urine Occult Blood 1+ (NEGATIVE) H Urine Nitrite Negative (NEGATIVE) Urine Bilirubin Negative (NEGATIVE) Urine Urobilinogen Normal MG/DL (0.0-1.0) Urine Leukocyte Esterase Negative (NEGATIVE) Urine RBC 2-4 /HPF (0 - 0) H Urine WBC 0-2 /HPF (0 - 0) Urine Squamous Epithelial Cells Occasional /LPF Urine Bacteria Occasional /HPF (NONE) Urine Opiates Screen Negative (NEGATIVE) Urine Barbiturates Screen Negative (NEGATIVE) Phencyclidine (PCP) Screen Negative (NEGATIVE) Urine Amphetamines Screen Negative (NEGATIVE) Urine Benzodiazepines Screen Negative (NEGATIVE) Urine Cocaine Screen Negative (NEGATIVE) Urine Marijuana (THC) Screen Positive (NEGATIVE) H White Blood Count 5.4 K/UL (4.8-10.8) Red Blood Count 4.65 M/UL (4.70-6.10) L Hemoglobin 13.8 G/DL (14.2-18.0) L Hematocrit 39.4 % (42.0-52.0) L Mean Corpuscular Volume 85 FL (80-99) Mean Corpuscular Hemoglobin 29.6 PG (27.0-31.0) Mean Corpuscular Hemoglobin Concent 34.9 G/DL (32.0-36.0) Red Cell Distribution Width 11.4 % (11.6-14.8) L Platelet Count 202 K/UL (150-450) Mean Platelet Volume 6.6 FL (6.5-10.1) Neutrophils (%) (Auto) 57.7 % (45.0-75.0) Lymphocytes (%) (Auto) 33.0 % (20.0-45.0) Monocytes (%) (Auto) 7.6 % (1.0-10.0) Eosinophils (%) (Auto) 1.3 % (0.0-3.0) Basophils (%) (Auto) 0.5 % (0.0-2.0) Activated Partial Thromboplast Time 30 SEC (23-33) Sodium Level 137 MMOL/L (136-145) Potassium Level 3.4 MMOL/L (3.5-5.1) L Chloride Level 103 MMOL/L (98-107) Carbon Dioxide Level 30 MMOL/L (21-32) Anion Gap 4 mmol/L (5-15) L Blood Urea Nitrogen 9 mg/dL (7-18) Creatinine 0.8 MG/DL (0.55-1.30) Estimat Glomerular Filtration Rate > 60 mL/min (>60) Glucose Level 100 MG/DL (74-106) Calcium Level 8.9 MG/DL (8.5-10.1) Total Bilirubin 1.1 MG/DL (0.2-1.0) H Direct Bilirubin 0.1 MG/DL (0.0-0.3) Aspartate Amino Transf (AST/SGOT) 15 U/L (15-37) Alanine Aminotransferase (ALT/SGPT) 25 U/L (12-78) Alkaline Phosphatase 99 U/L (46-116) Total Protein 6.8 G/DL (6.4-8.2) Albumin 3.6 G/DL (3.4-5.0) Globulin 3.2 g/dL Albumin/Globulin Ratio 1.1 (1.0-2.7) Amylase Level 58 U/L (25-115) Lipase 95 U/L (73-393) Height (Feet): 6 Height (Inches): 1.00 Weight (Pounds): 171 Medications Current Medications Medications (Trade) Dose Ordered Sig/Humphrey Route PRN Reason Start Time Stop Time Status Last Admin Dose Admin Acetaminophen (Tylenol) 650 mg Q4H PRN ORAL T>100.5 06/29/17 15:45 07/29/17 15:44 Al Hydroxide/Mg Hydroxide (Mylanta II) 30 ml Q6H PRN ORAL dyspepsia 06/29/17 15:45 07/29/17 15:44 Dextrose (Dextrose 50%) 25 ml STAT PRN IV Hypoglycemia 06/29/17 15:45 07/29/17 15:44 Dextrose (Dextrose 50%) 50 ml STAT PRN IV Hypoglycemia 06/29/17 15:45 07/29/17 15:44 Dextrose/Sodium Chloride 1,000 ml @ 75 mls/hr [id number] IV 06/29/17 17:00 07/29/17 16:59 06/30/17 05:13 Diphenhydramine HCl (Benadryl) 25 mg Q6H PRN ORAL Itching/Pruritis 06/29/17 15:45 07/29/17 15:44 Heparin Sodium (Porcine) (Heparin 5000 units/ml) 5,000 units EVERY 12 HOURS SUBQ 06/29/17 21:00 07/29/17 20:59 06/29/17 21:25 Lorazepam (Ativan 2mg/ml 1ml) 1 mg Q4H PRN IV agitation 06/29/17 15:45 07/06/17 15:44 Morphine Sulfate (Morphine Sulfate) 2 mg Q4H PRN IVP Severe Pain (Pain Scale 7-10) 06/29/17 15:45 07/06/17 15:44 06/30/17 11:30 Nitroglycerin (Ntg) 0.4 mg Q5MIN X 3 DOSES PRN SL Prn Chest Pain 06/29/17 16:00 07/29/17 15:59 Ondansetron HCl (Zofran) 4 mg Q6H PRN IVP Nausea & Vomiting 06/29/17 15:45 07/29/17 15:44 06/30/17 11:30 Pantoprazole (Protonix) 40 mg DAILY IV 06/30/17 09:00 07/30/17 08:59 Polyethylene Glycol (Miralax) 17 gm HSPRN PRN ORAL Constipation 06/29/17 15:45 07/29/17 15:44 Promethazine HCl (Phenergan) 25 mg Q8H PRN IV refractory nausea 06/29/17 15:45 07/29/17 15:44 Temazepam (Restoril) 15 mg HSPRN PRN ORAL Insomnia 06/29/17 21:00 07/06/17 20:59 Assessment/Plan Problem List: (1) Gastritis ICD Codes: K29.70 - Gastritis SNOMED: [id number] (2) Acute abdominal pain Assessment/Plan iv fluids npo sympotmatic treatment Genoveva Castle MD Jun 30, 2017 13:48
--- NOTE | 2017-06-30 21:23 | Cardiology Report ---
APPROVED REPORT EKG Measurement Heart [id number] VT [id number] Normal sinus rhythm with sinus arrhythmia Normal ECG
== END 2017-06-30 15:30 | disposition home or self-care (01) | DRG 241 ==
LOC: EDBD 12:47 → EDBEDREQ 13:23 → EMR 13:40 → EDBEDREQ 15:19 → 4E 15:49 → EDBEDREQ 15:50
DX: K29.70 Gastritis, unspecified, without bleeding (principal); Z76.5 Malingerer [conscious simulation]
CPT/HCPCS: 36415; 71045; 74018; 76700; 80053; 80307; 80329; 81003; 82150; 82248; 82550; 83690; 84484; 85025; 85610; 85730; 87081; 93005; 99285; J2405; J2765

== ENCOUNTER 2017-08-25 09:21 | Emergency (ER) | payer MEDICAID ==
[~2017-08-25] VITALS: Ht 182.9 cm; Wt 72.6 kg
[~2017-08-25 09:21] MED LIST changes: +PANTOPRAZOLE SO40 MG ORAL
[2017-08-25] MEDS ORDERED: NEXIUM40 M2 ORAL (09:36)
[2017-08-25] MEDS ORDERED: RENVELA800 MG ORAL (09:42)
[2017-08-25 09:45] VITALS: BP 140/92
[2017-08-25] MEDS ORDERED: Capsaicin 0.075% Cream TOPIC ONE (09:45)
[2017-08-25 09:58] LABS: BASOPHILS % (AUTO) 0.7 % (0.0-2.0); EOSINOPHILS % (AUTO) 0.2 % (0.0-3.0); HEMATOCRIT 51.3 % (42.0-52.0); HEMOGLOBIN 16.7 G/DL (14.2-18.0); LYMPHOCYTES % (AUTO) 10.6 % (20.0-45.0); MEAN CORPUSCULAR VOLUME 86 FL (80-99); NEUTROPHILS % (AUTO) 83.6 % (45.0-75.0); PLATELET COUNT 312 K/UL (150-450); RED BLOOD COUNT 5.98 M/UL (4.70-6.10); RED CELL DISTRIBUTION WIDTH 12.2 % (11.6-14.8); WHITE BLOOD COUNT 16.3 K/UL (4.8-10.8)
--- NOTE | 2017-08-25 09:58 | Emergency Room Report ---
History of Present Illness General Chief Complaint: Vomiting Source: Patient Present Illness HPI This patient has a history of recurrent gastritis and abdominal pain. He has been admitted to this hospital a month and a half ago for the same symptoms. He gets admitted and evaluated other hospitals for the same symptoms. He gets recurrent vomiting/gastritis and epigastric pain. The patient states that this episode started yesterday. He states that he has had severe uncontrolled pain and vomiting since that time. He has no other complaints. Allergies: Coded Allergies: No Known Allergies (Unverified , 10/01/12) Patient History Past Medical History: see triage record, ulcer, GERD Social History: Reports: drug use - THC; Denies: smoking, alcohol use Reviewed Nursing Documentation: PMH: Agreed; PSxH: Agreed Nursing Documentation-PMH Past Medical History: No Stated History Hx Cardiac Problems: No Hx Cancer: No Hx Gastrointestinal Problems: Yes - Gastritis Hx Neurological Problems: No Review of Systems All Other Systems: negative except mentioned in HPI Physical Exam Vital Signs Date Time Temp Pulse Resp B/P (MAP) Pulse Ox O2 Delivery O2 Flow Rate FiO2 08/25/17 09:27 97.5 64 15 140/92 94 Room Air 97.5 Sp02 EP Interpretation: reviewed, normal General Appearance: no apparent distress, alert, GCS 15, non-toxic, other - Actively vomiting Head: normocephalic, atraumatic Eyes: bilateral eye normal inspection, bilateral eye PERRL ENT: hearing grossly normal, normal pharynx, no angioedema, normal voice Neck: full range of motion, supple/symm/no masses Respiratory: chest non-tender, lungs clear, normal breath sounds, speaking full sentences Cardiovascular #1: regular rate, rhythm, no edema Gastrointestinal: normal bowel sounds, soft, non-distended, no guarding, no rebound, tenderness - ttp in the epigastrium Rectal: deferred Musculoskeletal: back normal, gait/station normal, normal range of motion, non- tender Neurologic: alert, oriented x3, responsive, motor strength/tone normal, sensory intact, speech normal Psychiatric: judgement/insight normal, memory normal, mood/affect normal, no suicidal/homicidal ideation Skin: normal color, no rash, warm/dry, well hydrated Medical Decision Making Diagnostic Impression: Primary Impression: Gastritis ER Course This patient has a clinical presentation consistent with gastritis. The location of the pain and history and physical examination is consistent with this. This patient gets recurrent episodes of gastritis and is well-known to [facility] any other local emergency departments. The patient also has narcotic seeking behavior. The patient was disruptive and belligerent in the emergency department. The patient was cursing and requesting narcotics. The patient did receive Pepcid, Toradol and I placed capsaicin cream on this patient's abdomen. The patient was very unhappy stating and that he wanted narcotic pain medications. The patient became belligerent and started calling me a "shit doctor" repeatedly. He was disruptive from the very beginning of his arrival to the emergency department. When he did not receive narcotics in the time frame he expected he eloped very angry and unhappy with his care. He is accompanied by his father. He was in a stable condition without an emergency medical condition upon his elopement. Laboratory Tests Test 08/25/17 09:45 08/25/17 10:05 White Blood Count 16.3 K/UL (4.8-10.8) H Red Blood Count 5.98 M/UL (4.70-6.10) Hemoglobin 16.7 G/DL (14.2-18.0) Hematocrit 51.3 % (42.0-52.0) Mean Corpuscular Volume 86 FL (80-99) Mean Corpuscular Hemoglobin 27.9 PG (27.0-31.0) Mean Corpuscular Hemoglobin Concent 32.6 G/DL (32.0-36.0) Red Cell Distribution Width 12.2 % (11.6-14.8) Platelet Count 312 K/UL (150-450) Mean Platelet Volume 6.6 FL (6.5-10.1) Neutrophils (%) (Auto) 83.6 % (45.0-75.0) H Lymphocytes (%) (Auto) 10.6 % (20.0-45.0) L Monocytes (%) (Auto) 5.0 % (1.0-10.0) Eosinophils (%) (Auto) 0.2 % (0.0-3.0) Basophils (%) (Auto) 0.7 % (0.0-2.0) Sodium Level 142 MMOL/L (136-145) Potassium Level 3.5 MMOL/L (3.5-5.1) Chloride Level 104 MMOL/L (98-107) Carbon Dioxide Level 25 MMOL/L (21-32) Anion Gap 13 mmol/L (5-15) Blood Urea Nitrogen 11 mg/dL (7-18) Creatinine 1.1 MG/DL (0.55-1.30) Estimate Glomerular Filtration Rate > 60 mL/min (>60) Glucose Level 180 MG/DL (74-106) H Calcium Level 10.3 MG/DL (8.5-10.1) H Total Bilirubin 0.8 MG/DL (0.2-1.0) Aspartate Amino Transferase (AST) 21 U/L (15-37) Alanine Aminotransferase (ALT) 30 U/L (12-78) Alkaline Phosphatase 129 U/L (46-116) H Total Protein 8.8 G/DL (6.4-8.2) H Albumin 5.0 G/DL (3.4-5.0) Globulin 3.8 g/dL Albumin/Globulin Ratio 1.3 (1.0-2.7) Lipase 70 U/L (73-393) L Serum Alcohol < 3 mg/dL Urine Color Brown Urine Appearance Cloudy Urine pH 5 (4.5-8.0) Urine Specific [place] 1.025 (1.005-1.035) Urine Protein 3+ (NEGATIVE) H Urine Glucose (UA) Negative (NEGATIVE) Urine Ketones 3+ (NEGATIVE) H Urine Occult Blood 2+ (NEGATIVE) H Urine Nitrite Negative (NEGATIVE) Urine Bilirubin 1+ (NEGATIVE) H Urine Ictotest Negative Urine Urobilinogen 1 MG/DL (0.0-1.0) H Urine Leukocyte Esterase 1+ (NEGATIVE) H Urine RBC 0-2 /HPF (0 - 0) H Urine WBC 2-4 /HPF (0 - 0) Urine Squamous Epithelial Cells Occasional /LPF Urine Amorphous Sediment Many /LPF (NONE) H Urine Bacteria Moderate /HPF (NONE) H Urine Mucus Few /LPF (NONE/OCC) H Urine Opiates Screen Negative (NEGATIVE) Urine Barbiturates Screen Negative (NEGATIVE) Phencyclidine (PCP) Screen Negative (NEGATIVE) Urine Amphetamines Screen Negative (NEGATIVE) Urine Benzodiazepines Screen Negative (NEGATIVE) Urine Cocaine Screen Negative (NEGATIVE) Urine Marijuana (THC) Screen Positive (NEGATIVE) H Last Vital Signs Date Time Temp Pulse Resp B/P (MAP) Pulse Ox O2 Delivery O2 Flow Rate FiO2 6/11/18 09:45 97.5 82 15 140/92 94 Room Air 97.5 Disposition: ELOPED Condition: Stable Rekha Marinelli DO Aug 25, 2017 09:58
[2017-08-25 10:06] LABS: ANION GAP 13 mmol/L (5-15); BLOOD UREA NITROGEN 11 mg/dL (7-18); CALCIUM 10.3 MG/DL (8.5-10.1); CARBON DIOXIDE 25 MMOL/L (21-32); CHLORIDE 104 MMOL/L (98-107); CREATININE 1.1 MG/DL (0.55-1.30); POTASSIUM 3.5 MMOL/L (3.5-5.1); SODIUM 142 MMOL/L (136-145)
[2017-08-25 10:11] LABS: APPEARANCE,URINE CLOUDY; BILIRUBIN, URINE 1+ (NEGATIVE); COLOR,URINE BROWN; GLUCOSE, URINE (UA) NEGATIVE (NEGATIVE); KETONES,URINE 3+ (NEGATIVE); LEUKOCYTE ESTERASE ,URINE 1+ (NEGATIVE); NITRITE,URINE NEGATIVE (NEGATIVE); PH,URINE 5 (4.5-8.0); PROTEIN,URINE 3+ (NEGATIVE); UROBILINOGEN,URINE 1 MG/DL (0.0-1.0)
[2017-08-25 10:12] LABS: ALANINE AMINOTRANSFERASE 30 U/L (12-78); ALBUMIN/GLOBULIN RATIO 1.3 (1.0-2.7); ALKALINE PHOSPHATASE 129 U/L (46-116); ASPARTATE AMINO TRANSFERASE 21 U/L (15-37); BILIRUBIN,TOTAL 0.8 MG/DL (0.2-1.0)
[2017-08-25] MEDS ORDERED: Ketorolac 30mg Inj IV ONE (10:15)
[2017-08-25 10:54] VITALS: BP 140/92
== END 2017-08-25 10:56 | disposition left against medical advice (07) ==
LOC: EMR 10:18
DX: K29.70 Gastritis, unspecified, without bleeding (principal); K21.9 Gastro-esophageal reflux disease without esophagitis
CPT/HCPCS: 36415; 80053; 80307; 80329; 81003; 83690; 85025; 87086; 96374; 96375; 99283; J1885; J2405; S0028

== ENCOUNTER 2018-10-22 12:21 | Emergency (ER) | payer MEDICAID ==
[~2018-10-22] VITALS: Ht 182.9 cm; Wt 88.5 kg
[~2018-10-22 12:21] MED LIST changes: +NEXIUM40 M2 ORAL; +RENVELA800 MG ORAL
--- NOTE | 2018-10-22 12:38 | NUR ---
ED Nurse Note: Pt from home came in due to abd. pain with nausea and vomiting since this morning. Pt state shis bowel movement is normal. AAO x,4 ambulatory with non labored breathing. Father at the bed side.
[2018-10-22] MEDS ORDERED: DiphenhydrAMINE 50mg/ml Inj IVP ONE (12:45)
[2018-10-22] MEDS ORDERED: Lidocaine 2% Visc 15ml soln ORAL ONE (12:45)
[2018-10-22] MEDS ORDERED: Mylanta II UD 30ml ORAL ONE (12:45)
[2018-10-22] MEDS ORDERED: Metoclopramide 10mg/2ml Inj IVP ONE (12:45)
--- NOTE | 2018-10-22 13:00 | NUR ---
ED Nurse Note: Collectd blood/urine then sent.
[2018-10-22 13:11] VITALS: BP 153/90
[2018-10-22 13:48] LABS: APPEARANCE,URINE CLEAR; BILIRUBIN, URINE NEGATIVE (NEGATIVE); COLOR,URINE PALE YELLOW; GLUCOSE, URINE (UA) NEGATIVE (NEGATIVE); KETONES,URINE 4+ (NEGATIVE); LEUKOCYTE ESTERASE ,URINE 1+ (NEGATIVE); NITRITE,URINE NEGATIVE (NEGATIVE); PH,URINE 9 (4.5-8.0); PROTEIN,URINE 1+ (NEGATIVE); UROBILINOGEN,URINE NORMAL MG/DL (0.0-1.0)
--- NOTE | 2018-10-22 13:51 | Diagnostic Imaging Report ---
Indication: Abdominal pain Comparison: 06/29/2017 Single view of the abdomen obtained Findings: Bowel gas pattern is nonspecific though evaluation limited in this regard as there is a relative possibility of small bowel gas. No mass, ectopic calcifications, or abnormal gas collections are identified. The bones are unremarkable. Impression: No acute findings. Limited study
[2018-10-22 13:53] LABS: HEMATOCRIT 44.4 % (42.0-52.0); HEMOGLOBIN 14.8 G/DL (14.2-18.0); MEAN CORPUSCULAR VOLUME 86 FL (80-99); PLATELET COUNT 278 K/UL (150-450); RED BLOOD COUNT 5.17 M/UL (4.70-6.10); RED CELL DISTRIBUTION WIDTH 12.1 % (11.6-14.8); WHITE BLOOD COUNT 11.1 K/UL (4.8-10.8)
[2018-10-22 14:06] LABS: ANION GAP 14 mmol/L (5-15); BLOOD UREA NITROGEN 11 mg/dL (7-18); CARBON DIOXIDE 24 MMOL/L (21-32); CHLORIDE 101 MMOL/L (98-107); POTASSIUM 3.7 MMOL/L (3.5-5.1); SODIUM 139 MMOL/L (136-145)
[2018-10-22 14:10] LABS: ALANINE AMINOTRANSFERASE 36 U/L (12-78); ALBUMIN 4.7 G/DL (3.4-5.0); ALBUMIN/GLOBULIN RATIO 1.2 (1.0-2.7); ALKALINE PHOSPHATASE 133 U/L (46-116); ASPARTATE AMINO TRANSFERASE 26 U/L (15-37); BILIRUBIN,TOTAL 0.9 MG/DL (0.2-1.0); CREATINE KINASE 70 U/L (26-308)
--- NOTE | 2018-10-22 15:02 | Emergency Room Report ---
History of Present Illness General Chief Complaint: Abdominal Pain Source: Patient Present Illness [facility] The patient presents with abdominal pain and vomiting. He has a history of gastritis. Been here seen here multiple times before. The last time he was refused opiates and was upset. 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 He denies drinking alcohol. He states he is taking his medication at this time. He states the pain is 10/10, aching and burning, epigastric not radiating into his chest. He feels anxious with this. He denies coffee grounds , hematemesis and melena. Was seen at [facility] last Friday. Never endoscopy. Has difficulty following with GI due to work schedule. Has pepcid, zofran and some hydrocodone. No fevers, chills, sore throat, chest pain, palpitations, dysuria, shortness of breath, joint pain, rashes, visual changes, headache. Allergies: Coded Allergies: No Known Allergies (Unverified , 10/01/12) Patient History Past Medical History: see triage record, old chart reviewed Social History: Reports: smoking, drug use - THC; Denies: alcohol use Social History Narrative [place] electric stove mechanic Reviewed Nursing Documentation: PMH: Agreed; PSxH: Agreed Nursing Documentation-PMH Past Medical History: No History, Except For Hx Cardiac Problems: No Hx Cancer: No Hx Gastrointestinal Problems: Yes - Gastritis Hx Neurological Problems: No Review of Systems All Other Systems: negative except mentioned in HPI Physical Exam Vital Signs Date Time Temp Pulse Resp B/P (MAP) Pulse Ox O2 Delivery O2 Flow Rate FiO2 10/22/18 12:28 98.2 69 20 154/97 (116) 98 Room Air Sp02 EP Interpretation: reviewed, normal General Appearance: alert, GCS 15, non-toxic, mild distress Head: normocephalic Eyes: bilateral eye normal inspection, bilateral eye PERRL ENT: moist mucus membranes Neck: supple Respiratory: lungs clear, normal breath sounds Cardiovascular #1: regular rate, rhythm Cardiovascular #2: 2+ radial (R) Gastrointestinal: no mass, non-distended, no guarding, no rebound, tenderness - Epigastric, decreased bowel sounds, scaphoid Genitourinary: no CVA tenderness Musculoskeletal: back normal, gait/station normal, normal range of motion Neurologic: alert, oriented x3, grossly normal Psychiatric: anxious Skin: no rash Medical Decision Making Diagnostic Impression: Primary Impression: Gastritis Qualified Codes: K29.00 - Acute gastritis without bleeding Additional Impressions: Nausea and vomiting Qualified Codes: R11.2 - Nausea with vomiting, unspecified Anxiety ER Course Patient presents with epigastric pain and vomiting. He has a history of gastritis. Differential includes gastritis, pancreatitis, viral syndrome, electrolyte imbalance, GERD, peptic ulcer disease amongst others. The patient obviously has anxiety at this time. Evaluation with EKG, abdominal x-ray and labs. The patient will be treated with IV hydration, Reglan, Benadryl, Pepcid and a small dose of morphine. The patient will receive IV hydration. 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 EKG without injury. Abdominal film paucity of gas but no lesions. Labs with mild leukocytosis. Electrolytes normal. Lipase normal. Patient improved with treatment. Tolerating oral intake. Discussed treatment plan with patient with addition of omeprazole and Phenergan. No medical emergency at this time. Discussed also the importance of follow-up for GI for endoscopy to exclude Helicobacter pylori. Discussed results and follow-up plan with father also. Patient stable for outpatient observation and treatment. Laboratory Tests Test 10/22/18 13:25 White Blood Count 11.1 K/UL (4.8-10.8) H Red Blood Count 5.17 M/UL (4.70-6.10) Hemoglobin 14.8 G/DL (14.2-18.0) Hematocrit 44.4 % (42.0-52.0) Mean Corpuscular Volume 86 FL (80-99) Mean Corpuscular Hemoglobin 28.6 PG (27.0-31.0) Mean Corpuscular Hemoglobin Concent 33.3 G/DL (32.0-36.0) Red Cell Distribution Width 12.1 % (11.6-14.8) Platelet Count 278 K/UL (150-450) Mean Platelet Volume 5.7 FL (6.5-10.1) L Neutrophils (%) (Auto) % (45.0-75.0) Lymphocytes (%) (Auto) % (20.0-45.0) Monocytes (%) (Auto) % (1.0-10.0) Eosinophils (%) (Auto) % (0.0-3.0) Basophils (%) (Auto) % (0.0-2.0) Differential Total Cells Counted 100 Neutrophils % (Manual) 94 % (45-75) H Lymphocytes % (Manual) 4 % (20-45) L Monocytes % (Manual) 2 % (1-10) Eosinophils % (Manual) 0 % (0-3) Basophils % (Manual) 0 % (0-2) Band Neutrophils 0 % (0-8) Platelet Estimate Adequate Platelet Morphology Normal Red Blood Cell Morphology Normal Prothrombin Time 10.9 SEC (9.30-11.50) Prothrombin Time INR 1.0 (0.9-1.1) PTT 26 SEC (23-33) Urine Color Pale yellow Urine Appearance Clear Urine pH 9 (4.5-8.0) Urine Specific [place] 1.015 (1.005-1.035) Urine Protein 1+ (NEGATIVE) H Urine Glucose (UA) Negative (NEGATIVE) Urine Ketones 4+ (NEGATIVE) H Urine Blood Negative (NEGATIVE) Urine Nitrite Negative (NEGATIVE) Urine Bilirubin Negative (NEGATIVE) Urine Urobilinogen Normal MG/DL (0.0-1.0) Urine Leukocyte Esterase 1+ (NEGATIVE) H Urine RBC 2-4 /HPF (0 - 0) H Urine WBC 2-4 /HPF (0 - 0) Urine Squamous Epithelial Cells Occasional /LPF Urine Transitional Epithelial Cells Moderate /LPF (NONE) H Urine Bacteria Occasional /HPF (NONE) Sodium Level 139 MMOL/L (136-145) Potassium Level 3.7 MMOL/L (3.5-5.1) Chloride Level 101 MMOL/L (98-107) Carbon Dioxide Level 24 MMOL/L (21-32) Anion Gap 14 mmol/L (5-15) Blood Urea Nitrogen 11 mg/dL (7-18) Creatinine 1.0 MG/DL (0.55-1.30) Estimate Glomerular Filtration Rate > 60 mL/min (>60) Glucose Level 125 MG/DL (74-106) H Calcium Level 10.0 MG/DL (8.5-10.1) Total Bilirubin 0.9 MG/DL (0.2-1.0) Aspartate Amino Transferase (AST) 26 U/L (15-37) Alanine Aminotransferase (ALT) 36 U/L (12-78) Alkaline Phosphatase 133 U/L (46-116) H Total Creatine Kinase 70 U/L (26-308) Troponin I 0.000 ng/mL (0.000-0.056) Total Protein 8.5 G/DL (6.4-8.2) H Albumin 4.7 G/DL (3.4-5.0) Globulin 3.8 g/dL Albumin/Globulin Ratio 1.2 (1.0-2.7) Lipase 101 U/L (73-393) Urine Opiates Screen Positive (NEGATIVE) H Urine Barbiturates Screen Negative (NEGATIVE) Phencyclidine (PCP) Screen Negative (NEGATIVE) Urine Amphetamines Screen Negative (NEGATIVE) Urine Benzodiazepines Screen Negative (NEGATIVE) Urine Cocaine Screen Negative (NEGATIVE) Urine Marijuana (THC) Screen Positive (NEGATIVE) H Serum Alcohol < 3 mg/dL EKG Diagnostic Results Rate: normal Rhythm: NSR ST Segments: no acute changes Rhythm Strip Diag. Results EP Interpretation: yes Rhythm: NSR, no PVC's, no ectopy Other X-Ray Diagnostic Results Other X-Ray Diagnostic Results : X-Ray ordered: abdomen # of Views/Limited Vs Complete: 1 View Interpretation: nonspecific bowel gas, no sbo, other - Positive gas, Impression: No acute disease Electronically Signed by: Electronically signed by Oumar Dickson MD Last Vital Signs Date Time Temp Pulse Resp B/P (MAP) Pulse Ox O2 Delivery O2 Flow Rate FiO2 10/22/18 15:30 98.0 98 19 128/85 100 Room Air Status: improved Disposition: HOME, SELF-CARE Condition: Improved Scripts Promethazine HCl (Promethegan) 25 Mg Supp.rect 25 MG RECTAL Q8HR PRN for Nausea & Vomiting, #6 SUPP 1 Refill Prov: Oumar Dickson MD 10/22/18 Promethazine Hcl* (PHENERGAN*) 25 Mg Tablet 25 MG ORAL Q8HR PRN for Nausea & Vomiting, #10 TAB 1 Refill Prov: Oumar Dickson MD 10/22/18 Omeprazole (OMEPRAZOLE) 40 Mg Capsule. 40 MG ORAL DAILY, #30 CAP Prov: Oumar Dickson MD 10/22/18 Referrals: NOT CHOSEN GALEN/,REFERRING (PCP) Oumar Dickson MD Oct 22, 2018 15:02
[2018-10-22 15:19] VITALS: BP 140/78
[2018-10-22] MEDS ORDERED: OMEPRAZOLE40 M1 ORAL (15:22)
[2018-10-22] MEDS ORDERED: PROMETHAZINE HC25 M1 ORAL (15:22)
[2018-10-22] MEDS ORDERED: PHENERGAN SUPP25 MG RECTAL (15:22)
[2018-10-22 15:30] VITALS: BP 128/85
--- NOTE | 2018-10-22 15:30 | NUR ---
ER DISCHARGE NOTE: Patient is cleared to be discharged per ERMD, pt is aox4, on room air, with stable vital signs. pt was given dc and prescription instructions, pt was able to verbalize understanding, pt id band and iv site removed without complications. pt is able to ambulate with steady gait. pt took all belongings and left with his dad.
== END 2018-10-22 15:30 | disposition home or self-care (01) ==
LOC: EMR 14:20
DX: K29.70 Gastritis, unspecified, without bleeding (principal); R11.2 Nausea with vomiting, unspecified; F41.9 Anxiety disorder, unspecified
CPT/HCPCS: 36415; 74018; 80053; 80307; 81003; 82550; 83690; 84484; 85007; 85025; 85610; 85730; 93005; 96361; 96374; 96375; 99284; G0480; J1200; J2765; S0028; 80329

== ENCOUNTER 2020-03-24 06:43 | Emergency (ER) | payer SELFPAY ==
[~2020-03-24] VITALS: Ht 185.4 cm; Wt 113.4 kg
[~2020-03-24 06:43] MED LIST changes: +BENADRYL25 MG ORAL; +CAPSAICIN HOT1 EACH TP; +FAMOTIDINE20 MG ORAL; +MAALOX ADVANCE1 EACH PO; +ONDANSETRON ODT4 MG BC; +PHENERGAN SUPP25 MG RECTAL; +PROMETHAZINE HC25 M1 ORAL; +REGLAN10 M1 ORAL; +SIMETHICONE80 MG ORAL
--- NOTE | 2020-03-24 06:55 | NUR ---
ED Nurse Note: iv access established. blood and urine collected; sent down to lab.
--- NOTE | 2020-03-24 06:57 | NUR ---
ED Nurse Note: patient ambulated to ed c/o abdominal pain x4 days. reports nausea and vomitting; denies diarrhea. a/ox4, ambulatory, vss. 155/106 bp, other vss. 10/10 abdominal pain.
[2020-03-24 06:58] VITALS: BP 155/106
--- NOTE | 2020-03-24 06:58 | Emergency Room Report ---
History of Present Illness General Chief Complaint: Abdominal Pain Source: Patient Present Illness HPI Disclaimer: Please note that this report is being documented using [employer] technology. This can lead to erroneous entry secondary to incorrect interpretation by the dictating instrument. HPI: 34-year-old male history of gastritis and cyclic vomiting syndrome presents for evaluation of abdominal pain. Symptoms present for days. Here notes pain and cramping in the epigastrium region that does not radiate. He reports vomiting and anorexia. Denies diarrhea, hematemesis, coffee-ground emesis, melena, hematochezia, dysuria, hematuria or flank pain. No prior history of pancreatitis or gallstones. Last alcohol was 8 days ago. He states he is no longer smoking marijuana. Has not followed up with gastroenterology despite multiple visits to the ER for similar complaints. Does not take any medications. Denied prior surgery. Denies other drug use. PMH: Gastritis, cyclic vomiting syndrome, chronic marijuana use PSH: Denied Allergies: Denied Social Hx: Marijuana use Allergies: Coded Allergies: No Known Allergies (Unverified , 10/01/12) COVID-19 Screening Contact w/high risk pt: No Experienced COVID-19 symptoms?: No COVID-19 Testing performed MEDICAL ASSOCIATE: No Nursing Documentation-PMH Past Medical History: No History, Except For Hx Cardiac Problems: No Hx Cancer: No Hx Gastrointestinal Problems: Yes - Gastritis Hx Neurological Problems: No Review of Systems All Other Systems: negative except mentioned in HPI Physical Exam Vital Signs Date Time Temp Pulse Resp B/P (MAP) Pulse Ox O2 Delivery O2 Flow Rate FiO2 03/24/20 06:48 98.8 92 16 155/106 (122) 98 Room Air General: Awake and alert, appears uncomfortable HEENT: NC/AT. EOMI. Cardiovascular: RRR. S1 and S2 normal. No murmur appreciated Resp: Normal work of breathing. No cough, wheezing or crackles appreciated Abdomen: Abdomen is soft, nondistended. Tender to palpation in the epigastrium. No rebound. No masses. Negative Chandler's. Skin: Intact. No abrasions, laceration or rash over the exposed skin MSK: Normal tone and bulk. Moving all extremities. No obvious deformity. Neuro: Awake and alert. Mentating appropriately. Medical Decision Making Diagnostic Impression: Primary Impression: Acute abdominal pain ER Course 34-year-old male history of cyclic vomiting syndrome, gastritis presents for evaluation of abdominal pain of 4 days. Patient arrives with stable vital signs well-appearing and benign abdomen. Patient received IV fluids, antiemetics, antacids. Labs returned largely within normal limits. Slightly low potassium and prescribed oral supplements. Patient became verbally abusive with me and with nursing staff because he was not given opiate pain medication. He states "this has been a waste of time" and pulled out his IV. He did not appear to be in any distress once he pulled out his IV line and got dressed. Ambulated out of the emergency department without any difficulty. No emesis while in the ED. Prescriptions were sent to his pharmacy. Laboratory Tests Test 03/24/20 06:55 White Blood Count 7.2 K/UL (4.8-10.8) Red Blood Count 5.39 M/UL (4.70-6.10) Hemoglobin 15.8 G/DL (14.2-18.0) Hematocrit 46.9 % (42.0-52.0) Mean Corpuscular Volume 87 FL (80-99) Mean Corpuscular Hemoglobin 29.4 PG (27.0-31.0) Mean Corpuscular Hemoglobin Concent 33.8 G/DL (32.0-36.0) Red Cell Distribution Width 12.2 % (11.6-14.8) Platelet Count 317 K/UL (150-450) Mean Platelet Volume 6.9 FL (6.5-10.1) Neutrophils (%) (Auto) 58.2 % (45.0-75.0) Lymphocytes (%) (Auto) 31.8 % (20.0-45.0) Monocytes (%) (Auto) 7.8 % (1.0-10.0) Eosinophils (%) (Auto) 1.1 % (0.0-3.0) Basophils (%) (Auto) 1.1 % (0.0-2.0) Urine Color Yellow Urine Appearance Clear Urine pH 8 (4.5-8.0) Urine Specific [place] 1.010 (1.005-1.035) Urine Protein Negative (NEGATIVE) Urine Glucose (UA) Negative (NEGATIVE) Urine Ketones 3+ (NEGATIVE) H Urine Blood 1+ (NEGATIVE) H Urine Nitrite Negative (NEGATIVE) Urine Bilirubin Negative (NEGATIVE) Urine Urobilinogen 4 MG/DL (0.0-1.0) H Urine Leukocyte Esterase Negative (NEGATIVE) Urine RBC 0-2 /HPF (0 - 0) H Urine WBC 0 /HPF (0 - 0) Urine Squamous Epithelial Cells Occasional /LPF Urine Bacteria Occasional /HPF (NONE) Sodium Level 133 MMOL/L (136-145) L Potassium Level 3.0 MMOL/L (3.5-5.1) L Chloride Level 95 MMOL/L (98-107) L Carbon Dioxide Level 26 MMOL/L (21-32) Anion Gap 12 mmol/L (5-15) Blood Urea Nitrogen 13 mg/dL (7-18) Creatinine 0.9 MG/DL (0.55-1.30) Estimated Glomerular Filtration Rate > 60 mL/min (>60) Glucose Level 113 MG/DL (74-106) H Calcium Level 9.6 MG/DL (8.5-10.1) Magnesium Level 2.3 MG/DL (1.8-2.4) Total Bilirubin 1.9 MG/DL (0.2-1.0) H Direct Bilirubin 0.5 MG/DL (0.0-0.3) H Aspartate Amino Transferase (AST) 42 U/L (15-37) H Alanine Aminotransferase (ALT) 67 U/L (12-78) Alkaline Phosphatase 128 U/L (46-116) H Total Protein 7.7 G/DL (6.4-8.2) Albumin 4.3 G/DL (3.4-5.0) Globulin 3.4 g/dL Albumin/Globulin Ratio 1.3 (1.0-2.7) Lipase 143 U/L (73-393) Urine Opiates Screen Negative (NEGATIVE) Urine Barbiturates Screen Negative (NEGATIVE) Phencyclidine (PCP) Screen Negative (NEGATIVE) Urine Amphetamines Screen Negative (NEGATIVE) Urine Benzodiazepines Screen Negative (NEGATIVE) Urine Cocaine Screen Negative (NEGATIVE) Urine Marijuana (THC) Screen Positive (NEGATIVE) H Last Vital Signs Date Time Temp Pulse Resp B/P (MAP) Pulse Ox O2 Delivery O2 Flow Rate FiO2 03/24/20 06:48 98.8 92 16 155/106 (122) 98 Room Air Disposition: HOME, SELF-CARE Condition: Stable Scripts Potassium Chloride* (K-DUR*) 20 Meq Tab.er.prt 20 MEQ ORAL DAILY for SUPPLEMENT, #3 TAB 0 Refills Prov: Tom,Rashid MD 03/24/20 Ondansetron Odt* (ZOFRAN ODT*) 4 Mg Tab.rapdis 4 MG BC EVERY 6 HOURS PRN for Nausea & Vomiting, #10 TAB 0 Refills Prov: Rashid Santos MD 03/24/20 Rashid Santos MD Mar 24, 2020 06:58
[2020-03-24] MEDS: Dicyclomine HCl 10mg/5ml oral soln ORAL ONE (07:01)
[2020-03-24] MEDS: Lidocaine 2% Visc 15ml soln ORAL ONE (07:01)
[2020-03-24] MEDS: Mylanta II UD 30ml ORAL ONE (07:02)
--- NOTE | 2020-03-24 07:03 | NUR ---
HAND-OFF: Report given to darlyn gallo.
[2020-03-24 07:14] LABS: APPEARANCE,URINE CLEAR; BILIRUBIN, URINE NEGATIVE (NEGATIVE); GLUCOSE, URINE (UA) NEGATIVE (NEGATIVE); KETONES,URINE 3+ (NEGATIVE); LEUKOCYTE ESTERASE ,URINE NEGATIVE (NEGATIVE); NITRITE,URINE NEGATIVE (NEGATIVE); PH,URINE 8 (4.5-8.0); PROTEIN,URINE NEGATIVE (NEGATIVE); UROBILINOGEN,URINE 4 MG/DL (0.0-1.0)
[2020-03-24 07:18] LABS: COLOR,URINE YELLOW
[2020-03-24 07:19] LABS: BASOPHILS % (AUTO) 1.1 % (0.0-2.0); EOSINOPHILS % (AUTO) 1.1 % (0.0-3.0); HEMATOCRIT 46.9 % (42.0-52.0); HEMOGLOBIN 15.8 G/DL (14.2-18.0); LYMPHOCYTES % (AUTO) 31.8 % (20.0-45.0); MEAN CORPUSCULAR VOLUME 87 FL (80-99); MONOCYTES % (AUTO) 7.8 % (1.0-10.0); NEUTROPHILS % (AUTO) 58.2 % (45.0-75.0); PLATELET COUNT 317 K/UL (150-450); RED BLOOD COUNT 5.39 M/UL (4.70-6.10); RED CELL DISTRIBUTION WIDTH 12.2 % (11.6-14.8); WHITE BLOOD COUNT 7.2 K/UL (4.8-10.8)
--- NOTE | 2020-03-24 08:00 | NUR ---
ED Nurse Note:pt. is sleeping, no signs of pain or distress noted
[2020-03-24 08:02] LABS: ANION GAP 12 mmol/L (5-15); BLOOD UREA NITROGEN 13 mg/dL (7-18); CALCIUM 9.6 MG/DL (8.5-10.1); CARBON DIOXIDE 26 MMOL/L (21-32); CHLORIDE 95 MMOL/L (98-107); CREATININE 0.9 MG/DL (0.55-1.30); SODIUM 133 MMOL/L (136-145)
[2020-03-24 08:12] LABS: ALANINE AMINOTRANSFERASE 67 U/L (12-78); ALBUMIN 4.3 G/DL (3.4-5.0); ALBUMIN/GLOBULIN RATIO 1.3 (1.0-2.7); ALKALINE PHOSPHATASE 128 U/L (46-116); ASPARTATE AMINO TRANSFERASE 42 U/L (15-37); BILIRUBIN,TOTAL 1.9 MG/DL (0.2-1.0)
[2020-03-24 08:19] LABS: BILIRUBIN,DIRECT 0.5 MG/DL (0.0-0.3)
[2020-03-24] MEDS ORDERED: ONDANSETRON ODT4 MG BC (08:39)
[2020-03-24] MEDS ORDERED: POTASSIUM CHLO20 ME1 ORAL (08:40)
[2020-03-24 08:45] VITALS: BP 150/89
--- NOTE | 2020-03-24 08:45 | NUR ---
ER DISCHARGE NOTE: Patient is cleared to be discharged per ERMD, pt is aox4, on room air, with stable vital signs. pt was given dc instructions, pt was able to verbalize understanding, pt id band and iv site removed without complications. pt is able to ambulate with steady gait. pt took all belongings.
== END 2020-03-24 08:59 | disposition home or self-care (01) ==
LOC: EMR 07:36
DX: R10.13 Epigastric pain (principal); F12.11 Cannabis abuse, in remission
CPT/HCPCS: 36415; 80053; 80307; 81003; 82248; 83690; 83735; 85025; 96361; 96374; 96375; 99284; J2405; J7030; S0028